=== PATIENT | male | born 1995 | race Caucasian/White ===

== ENCOUNTER 2016-09-21 01:03 | Emergency (ER) | payer OTHER ==
[~2016-09-21] VITALS: Ht 175.3 cm; Wt 71.0 kg
[2016-09-21 01:08] VITALS: TEMP 36.4; Ht 175.3 cm; Wt 71.0 kg
[2016-09-21 01:16] VITALS: O2SAT 97
--- NOTE | 2016-09-21 01:18 | EMERGENCY ROOM VISIT NOTE ---
History Report prepared by Angie: Dawna Conti Under the Supervision of: Dr. Celeste Murdock D.O. First contact with patient: 01:07 Chief Complaint: ALCOHOL OVERDOSE Stated Complaint: ALCOHOL OVERDOSE History of Present Illness The patient is a 21 year old male who presents to the Emergency Room with complaints of an alcohol overdose that occurred prior to arrival. Per EMS the patient was found at [facility] on [facility] having difficulties paying. They note that the patient was drooling while there. 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 They note that the patient was at a [place] this [place], and the patient is unsure how he got from [place], to the [facility]. The patient denies any active medical problems. The history is limited secondary to alcohol intoxication. Source of History: patient, EMS History Limited By: intoxication Onset: prior to arrival Position: other (global) Quality: other (alcohol overdose) Review of Systems The history is limited secondary to intoxication. Past Medical & Surgical unobtainable secondary to alcohol intoxication. Family History Unobtainable secondary to alcohol intoxication. Social History Alcohol Use: heavy Occupation Status: [employer] student Current/Historical Medications No Active Prescriptions or Reported Meds Allergies Coded Allergies: No Known Allergies (Unverified , 09/21/16) Physical Exam Vital Signs Date Time Temp Pulse Resp B/P Pulse Ox O2 Delivery O2 Flow Rate FiO2 09/21/16 04:55 81 18 100/68 95 09/21/16 03:00 81 18 83/40 95 Room Air 09/21/16 01:43 111 15 99 09/21/16 01:38 116 16 97 09/21/16 01:33 123 17 97 09/21/16 01:28 86 20 95 09/21/16 01:23 88 20 93 09/21/16 01:18 91 20 91 09/21/16 01:16 97 Room Air 09/21/16 01:13 110 21 98 09/21/16 01:08 111 18 99 09/21/16 01:08 36.4 110 18 108/60 97 Room Air 09/21/16 01:05 108/60 Physical Exam HEENT: Head - normocephalic, superficial laceration and abrasion to right cheek. Pupils are 8 mm and sluggishly reactive to light. Extraocular eye muscles are intact, and sclera are anicteric. Nose - moist nasal mucosa without discharge. Mouth - moist buccal mucosa. Oropharynx is nonerythematous and there is no tonsillar exudate or edema noted. Neck: Supple; no JVD, nuchal rigidity, cervical lymphadenopathy. Heart: Regular rate and rhythm. There is a normal S1 and S2 with no murmurs, clicks, or gallops appreciated. Lungs: Clear to auscultation bilaterally with no wheezes, rales, or rhonchi. Abdomen: Soft, completely nontender, nondistended, with good bowel sounds. There are no palpable pulsatile masses or hepatosplenomegaly. There is no guarding, rigidity, or rebound noted. Extremities: No evidence of cyanosis, clubbing, or edema. There are easily palpable peripheral pulses. Skin: warm and dry with good turgor and no rashes. Medical Decision & Procedures Laboratory Results 09/21/16 01:10 Test 09/21/16 01:10 Anion Gap 13.0 mmol/L (3-11) Est Creatinine Clear Calc Drug Dose 125.7 ml/min Estimated GFR () 135.5 Estimated GFR (Non- 116.9 BUN/Creatinine Ratio 10.9 (10-20) Calcium Level 8.5 mg/dl (8.5-10.1) Ethyl Alcohol mg/dL 204.0 mg/dl (0-3) Laboratory results per my review. ED Course 0103: Past medical records reviewed. The patient was evaluated in room B4A. A complete history and physical exam was performed. The patient was placed in the prone position to avoid aspiration. He was observed on the panel monitor and pulse oximeter. Labs were drawn as above. 0250: The patient is resting comfortably at this time. He will awake to verbal stimuli. 0335: I reevaluated the patient and he is sleeping and hemodynamically stable. 0430: I reevaluated the patient and he is doing fine. I discussed the exam findings with him and I discussed the treatment plan. He verbalized complete understanding and agreement. He is ready to go home shortly. Medical Decision The patient is a 21 year old male who presents to the ED with an alcohol overdose. Differential diagnosis includes alcohol overdose, drug intoxication, hypoglycemia, head injury. Labs: alcohol 204, normal renal functions, glucose is elevated at 133. The patient presents to the emergency department is an alcohol overdose. He was cooperative throughout his stay here in the emergency department. He remained hemodynamically stable. Once he was more sober, I discussed the situation with the patient and suggested that he avoid such excessive alcohol use in the future. He should keep himself I'll hydrated today and use Tylenol for any headaches. Impression Primary Impression: Alcohol overdose Scribe Attestation The scribe's documentation has been prepared under my direction and personally reviewed by me in its entirety. I confirm that the note above accurately reflects all work, treatment, procedures, and medical decision making performed by me. Departure Information Dispostion Home / Self-Care Prescriptions No Active Prescriptions or Reported Meds Forms HOME CARE DOCUMENTATION FORM, IMPORTANT VISIT INFORMATION Patient Instructions ED Overdose Alcohol, [facility]: [employer] Students and Alcohol Related Visits, [facility] Additional Instructions Avoid such excessive alcohol use in the future Rest. Keep yourself well-hydrated. Use tylenol for headaches
[2016-09-21 01:40] LABS: BUN/CREATININE RATIO 10.9 (10-20); CALCIUM 8.5 mg/dl (8.5-10.1); CREATININE 0.93 mg/dl (0.60-1.40); POTASSIUM 3.5 mmol/L (3.5-5.1)
[2016-09-21 04:55] VITALS: BP 100/68; PULSE 81; O2SAT 95
== END 2016-09-21 04:55 | disposition home or self-care (01) ==
LOC: EDBD 01:03 → C.EDB 01:07
DX: F10.129 Alcohol abuse with intoxication, unspecified (principal)